=== PATIENT | male | born 1955 | race Caucasian/White ===

== ENCOUNTER 2024-11-01 10:30 | Outpatient (RCR) | payer MEDICARE, OTHER, SELFPAY ==
--- NOTE | 2024-08-31 16:54 | HP.OTEVAL_ITS ---
Patient's Visit Information Visit Information Visit Information: MARY KAY FRANZ is a 69 year old M, referred to Occupational Therapy by Dr. Fili Vazquez MD, with a diagnosis of Slack right wrist. 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 pt arrives 4 weeks and 6 days s/p from a right wrist scaphoid excision and four corner fusion. pt states he is right-handed- feels better now that he has been taking orthosis off- arrives with orthosis and denies need for adj. pt states he is ready to return to using his right UE with all daily tasks. ROM Forearm: right sup 50* left WNL Wrist: right 20/30 left 70/65 ROM Comments: right RD [address] 10 UD 15 Strength Sintering Plant Supervisor: right 15# left 60# Lateral Pinch: right 16# left 27# Tripod Pinch: right 8# left 26# Sensation Sensation Comments: denies Goals Goal:100% adherence to protocol: Yes Comment: 4 corner fusion guidelines Goal:Daily scar massage when approriate: Yes Goal:ROM equal to unaffected hand: Yes Comment: 70-80% of unaffected UE Goal:Sintering Plant Supervisor/Pinch strength at least 75% of unaffected hand: Yes Comment: will not initiate until cleared by Goal:No pain with affected hand use: Yes Goal:Full use of affected hand in daily activities including work: Yes Rehabilitation General Assessment: pt arrives s/p scaphoid excision and four corner fusion on 07/28/24. pt arrives 4 weeks and 6 days s/p from a right wrist scaphoid excision and four corner fusion. pt demo with good fitting orthosis and nicely healed incision. Pt denies pain and tingling at this time- feels hand is stiff and due to healing structures, he is limited with his daily occupations ( as pt is right-handed) pt would benefit from further skilled OT services 1-2x week for 6 weeks to assist pt in reaching maximal rehab potential. Today therapist review of AROM digits- forearm and scar mtg. Therapy will cont to transition pt as he tolerates. Pt and pts demo understanding and agree to POC. Rehabilitation Potential: Good Anticipated Interventions Anticipated Interventions: A/AAROM/PROM, Strengthening, Edema Control, Scar Care, Triggerpoint Release, Sensory Retraining, Modalities, Orthoses, Joint Protection/Energy Conservation, Ergonomic Education, Fine Motor Coord/George, Education re assistive Equipment, Education re Diagnosis, Caregiver Training and Other Visit Plan Frequency: 1-2x /Week Duration: 2 Months General Plan: AROM No Forced ROM scar mtg edema mtg When cleared by Dr. bonner strengthening TEXT: Thank you for the opportunity to evaluate your patient. For Medicare and Medicare HMO plans, please review the plan of care and approve it. It will need to be FAXED BACK to us at [phone] for Medicare purposes. Please let me know if there are questions or concerns regarding this plan of care. Physician Signature: Date:
--- NOTE | 2024-11-01 10:53 | HP.OTDCSUM ---
Discharge Summary D/C Summary: It has been my pleasure to treat MARY KAY FRANZ under orders from Dr. Fili Vazquez MD, for the diagnosis of Slack right wrist for a total of 10 visit(s). Please see the following information for a summary of their discharge status. Overall Improvement % Improvement: 95 Objective Objective/Function: right wrist 40 ext/45 flex increase from 20/30 right forearm supination 85* increase from 50* right mechanical maintenance engineer strength 45# left 65# right lateral pinch 16# right tripod pinch 10# pt has made great gains with his recovery and feel he is at 95% recovery. pt agrees to HEP and D/C Goals Patient Goals: Improve Fine Motor Skills, Use Hand/Wrist/Arm Normally Again and Be More Independent in ADLS Goal:100% adherence to protocol: Yes Goal Progress: Goal Met Goal:Daily scar massage when approriate: Yes Goal Progress: Goal Met Goal:ROM equal to unaffected hand: Yes Goal Progress: Progressing Goal:Microarray Operations Vice President/Pinch strength at least 75% of unaffected hand: Yes Goal Progress: Goal Met Goal:No pain with affected hand use: Yes Goal Progress: Goal Met Goal:Full use of affected hand in daily activities including work: Yes Goal Progress: Goal Met Plan Plan: D/C with HEP D/C Information d/c sentence: If there are questions or concerns regarding this patient's occupational therapy, please fell free to call me at [phone]. Thank you for the referral of this patient. Sincerely, Edilia Tsai, OTR/L, CHT
--- NOTE | 2024-11-01 10:53 | HP.OTDCSUM ---
Discharge Summary D/C Summary: It has been my pleasure to treat MARY KAY FRANZ under orders from Dr. Fili Vazquez MD, for the diagnosis of Slack right wrist for a total of 10 visit(s). Please see the following information for a summary of their discharge status. Overall Improvement % Improvement: 95 Objective Objective/Function: right wrist 40 ext/45 flex increase from 20/30 right forearm supination 85* increase from 50* right flosser strength 45# left 65# right lateral pinch 16# right tripod pinch 10# pt has made great gains with his recovery and feel he is at 95% recovery. pt agrees to HEP and D/C Goals Patient Goals: Improve Fine Motor Skills, Use Hand/Wrist/Arm Normally Again and Be More Independent in ADLS Goal:100% adherence to protocol: Yes Goal Progress: Goal Met Goal:Daily scar massage when approriate: Yes Goal Progress: Goal Met Goal:ROM equal to unaffected hand: Yes Goal Progress: Progressing Goal:Supervisor Stave Cutting/Pinch strength at least 75% of unaffected hand: Yes Goal Progress: Goal Met Goal:No pain with affected hand use: Yes Goal Progress: Goal Met Goal:Full use of affected hand in daily activities including work: Yes Goal Progress: Goal Met Plan Plan: D/C with HEP D/C Information d/c sentence: If there are questions or concerns regarding this patient's occupational therapy, please fell free to call me at [phone]. Thank you for the referral of this patient. Sincerely, Edilia Tsai, OTR/L, CHT
== END 2024-11-01 19:00 | disposition home or self-care (01) ==
LOC: OT 10:30
PROVIDERS: Referring Provider Orthopaedic Surgery Hand Surgery; Visit Provider Orthopaedic Surgery Hand Surgery
DX: M19.131 Post-traumatic osteoarthritis, right wrist (principal)
CPT/HCPCS: 97110; 97140; 97166; 97530